=== PATIENT | female | born 2005 | race Caucasian/White ===

== ENCOUNTER 2025-02-02 18:31 | Emergency (ER) | payer MEDICAID ==
[~2025-02-02] VITALS: Ht 162.6 cm; Wt 39.5 kg
[2025-02-02 18:34] VITALS: BP 132/80
[2025-02-02] MEDS ORDERED: GABA300C PO (18:39)
[2025-02-02] MEDS ORDERED: QUET50TA PO (18:39)
[2025-02-02] MEDS ORDERED: ESCI20TA PO (18:44)
[2025-02-02] MEDS ORDERED: LORAZEPAM 1 MG TABLET ONE (18:51)
[2025-02-02] MEDS: LORAZEPAM 0.5 MG TABLET PO ONE (18:53)
[2025-02-02] MEDS ORDERED: LORA-259 PO (19:11)
[2025-02-02 19:31] LABS: PLATELET COUNT (AUTO) 253 K/uL (179-408); RED BLOOD CELL COUNT(AUTO) 4.65 MIL/uL (3.63-4.92); RED CELL DISTRIBUTION WIDTH 13.6 % (12.3-17.7); WHITE BLOOD COUNT (AUTO) 14.9 K/uL (3.8-11.8)
[2025-02-02 19:36] LABS: CREATININE 0.6 mg/dL (0.6-1.3); SODIUM SERUM 139 mmol/L (136-145); UREA NITROGEN, BLOOD 7 mg/dL (7-18)
[2025-02-02 19:41] LABS: ASPARTATE AMINOTRANSFERASE 15 U/L (15-37); TOTAL PROTEIN, SERUM 7.9 g/dL (6.4-8.2)
[2025-02-02 19:59] VITALS: BP 132/80; TEMP 98; O2SAT 100
== END 2025-02-02 19:55 | disposition home or self-care (01) ==
LOC: ER 18:31
DX: R07.9 Chest pain, unspecified (principal); R06.00 Dyspnea, unspecified; R42 Dizziness and giddiness; F41.0 Panic disorder [episodic paroxysmal anxiety]; F17.210 Nicotine dependence, cigarettes, uncomplicated; G89.29 Other chronic pain; Z79.899 Other long term (current) drug therapy
CPT/HCPCS: 36415; 71045; 84484; 85025; A4606; A4663

== ENCOUNTER 2025-03-03 02:53 | Emergency (ER) | payer MEDICAID ==
[~2025-03-03] VITALS: Ht 162.6 cm; Wt 37.2 kg
[~2025-03-03 02:53] MED LIST: ESCI20TA PO; GABA300C PO; LORA-259 PO; QUET50TA PO
[2025-03-03 03:49] LABS: PLATELET COUNT (AUTO) 281 K/uL (179-408); RED BLOOD CELL COUNT(AUTO) 4.46 MIL/uL (3.63-4.92); RED CELL DISTRIBUTION WIDTH 14.0 % (12.3-17.7); WHITE BLOOD COUNT (AUTO) 7.4 K/uL (3.8-11.8)
[2025-03-03 04:00] LABS: *BILIRUBIN,URIN NEGATIVE (NEGATIVE); *CLARITY,URINE CLEAR (CLEAR); *COLOR,URINE YELLOW (YELLOW); *KETONES,URINE TRACE (NEGATIVE); *PROTEIN,URINE NEGATIVE (NEGATIVE); *UROBILINOGEN,URINE 0.2 E.U./dl (NORMAL); CREATININE 0.6 mg/dL (0.6-1.3); LEUKOCYTE ESTERASE ,URINE NEGATIVE (NEGATIVE); NITRITE, URINE NEGATIVE (NEGATIVE); SODIUM SERUM 144.0 mmol/L (136-145); UGLUCOSE NEGATIVE (NEGATIVE); UREA NITROGEN, BLOOD 8.0 mg/dL (7-18)
[2025-03-03 04:01] LABS: *BLOOD, URINE TRACE (NEGATIVE)
[2025-03-03 04:04] LABS: *URINE HCG, QUAL NEGATIVE (NEGATIVE)
[2025-03-03 04:06] LABS: ASPARTATE AMINOTRANSFERASE 15.0 U/L (15-37); SQUAMOUS EPITHELIAL CELL,UR FEW /HPF (NONE SEEN); TOTAL PROTEIN, SERUM 7.6 g/dL (6.4-8.2)
[2025-03-03 04:45] VITALS: BP 106/72
[2025-03-03 06:36] VITALS: BP 104/69; O2SAT 99
== END 2025-03-03 06:36 | disposition home or self-care (01) ==
LOC: ER 02:55
DX: S06.0X0A Concussion without loss of consciousness, initial encounter (principal); F17.200 Nicotine dependence, unspecified, uncomplicated; F41.9 Anxiety disorder, unspecified; G89.29 Other chronic pain; N93.9 Abnormal uterine and vaginal bleeding, unspecified; Z79.899 Other long term (current) drug therapy; Z88.7 Allergy status to serum and vaccine; V43.52XA Car driver injured in collision with other type car in traffic accident, initial encounter; Y92.410 Unspecified street and highway as the place of occurrence of the external cause; Y92.89 Other specified places as the place of occurrence of the external cause; Y99.8 Other external cause status
CPT/HCPCS: 36415; 71045; 83690; 84703; 85025; A4606; A4663